=== PATIENT | male | born 1950 | race Caucasian/White ===

== ENCOUNTER 2019-05-27 20:28 | Emergency (ER) | payer MEDICARE, MEDICAID ==
[~2019-05-27] VITALS: Ht 170.2 cm; Wt 88.7 kg
[2019-05-27] MEDS ORDERED: LISI-661 PO (20:47)
[2019-05-27] MEDS ORDERED: VENL-53 PO (20:47)
[2019-05-27] MEDS ORDERED: FURO40 PO (20:47)
[2019-05-27] MEDS ORDERED: METH500T7 PO (20:47)
[2019-05-27] MEDS ORDERED: FLUT16H NASAL (20:47)
[2019-05-27] MEDS ORDERED: ACET500C4 PO (20:47)
[2019-05-27] MEDS ORDERED: PIOG15TA6 PO (20:47)
[2019-05-27] MEDS ORDERED: FURO20 PO (20:47)
[2019-05-27] MEDS ORDERED: LORA10TA7 PO (20:47)
[2019-05-27] MEDS ORDERED: LOSA50TA64 PO (20:47)
[2019-05-27] MEDS ORDERED: CLOP75TA3 PO (20:47)
[2019-05-27] MEDS ORDERED: ATOR20TA86 PO (20:47)
[2019-05-27 21:04] LABS: BASOPHILS % (AUTO) 0.5 % (0.0-2.0); EOSINOPHILS % (AUTO) 0.1 % (1.0-6.0); HEMATOCRIT 39.4 % (41-53); HEMOGLOBIN 13.4 g/dL (13.5-17.5); LYMPHOCYTES # (AUTO) 1.2 K/uL (1.0-4.8); LYMPHOCYTES % (AUTO) 16.6 % (22.0-44.0); MEAN CORPUSCULAR HEMOGLOBIN 28.7 pg (26.0-34.0); MEAN CORPUSCULAR HGB CONC 34.1 G/dL (31.0-37.0); MEAN CORPUSCULAR VOLUME 84 fL (80-100); MONOCYTES # (AUTO) 0.4 K/uL (0.1-1.0); MONOCYTES % (AUTO) 5.3 % (2.0-9.0); NEUTROPHILS # (AUTO) 5.4 K/uL (1.8-7.7); NEUTROPHILS % (AUTO) 77.5 % (40.0-70.0); PLATELET COUNT (AUTO) 191 K/uL (150-450); RED BLOOD CELL COUNT(AUTO) 4.68 MIL/uL (4.50-5.90)
[2019-05-27] MEDS ORDERED: NiCARDipine HCL 25 MG in DEXTROSE 5%-WATER 240 ML IV PRN (21:15)
[2019-05-27 21:16] LABS: ANION GAP 10 mmol/L (8-16); CALCIUM, TOTAL 9.6 mg/dL (8.8-10.5); CARBON DIOXIDE 29 mmol/L (22-29); CHLORIDE 100 mmol/L (98-107); CREATININE 0.98 mg/dL (0.60-1.30); GLOMERULAR FILTR. RATE CALC > 60 mL/min (>60); GLUCOSE,RANDOM 392 mg/dL (70-110); POTASSIUM 4.2 mmol/L (3.5-5.1); SODIUM SERUM 139 mmol/L (136-145); UREA NITROGEN, BLOOD 18 mg/dL (7-18)
[2019-05-27 21:17] LABS: PROTHROMBIN TIME 10.1 SEC (9.4-11.6)
[2019-05-27 21:22] LABS: ALANINE AMINOTRANSFERASE 30 U/L (12-78); ALBUMIN 3.8 g/dL (3.4-5.0); ALKALINE PHOSPHATASE 114 U/L (46-116); ASPARTATE AMINOTRANSFERASE 24 U/L (15-37); TOTAL PROTEIN, SERUM 7.8 g/dL (6.4-8.2)
[2019-05-27 21:40] LABS: APPEARANCE,URINE CLEAR (CLEAR); BILIRUBIN,URINE NEGATIVE (NEGATIVE); GLUCOSE, URINE (UA) >=1000 mg/dL (NEGATIVE); KETONES,URINE 15 mg/dL (NEGATIVE); LEUKOCYTE ESTERASE ,URINE NEGATIVE (NEGATIVE); NITRATE,URINE NEGATIVE (NEGATIVE); OCCULT BLOOD,URINE MODERATE (NEGATIVE); PH,URINE 6.5 (5.0-8.0); PROTEIN,URINE SEE CONFIRM (NEGATIVE)
[2019-05-27] MEDS ORDERED: ALTEPLASE IV ONE ×2 (21:45)
[2019-05-27] MEDS ORDERED: ALTEPLASE PER STROKE PROTOCOL CLINICAL ONE (21:45)
[2019-05-27] MEDS ORDERED: WATER FOR INJECTION STERILE IV ONE ×2 (21:45)
[2019-05-27 21:46] LABS: AMPHET/METH SCREEN,URINE POSITIVE (NEGATIVE); BARBITURATE SCREEN, URINE NEGATIVE (NEGATIVE); BENZODIAZEPINES SCREEN,URINE NEGATIVE (NEGATIVE); CANNABINOID SCREEN,URINE NEGATIVE (NEGATIVE); COCAINE SCREEN,URINE NEGATIVE (NEGATIVE); METHADONE SCREEN, URINE NEGATIVE (NEGATIVE); OPIATE SCREEN,URINE NEGATIVE (NEGATIVE); SULFOSALICYLIC ACID,URINE 4+ (Negative)
[2019-05-27 21:47] LABS: PHENCYCLIDINE SCREEN,URINE NEGATIVE (NEGATIVE)
[2019-05-27 21:48] LABS: BACTERIA,URINE None Seen /HPF (None Seen); SQUAMOUS EPITHELIAL CELL,UR Rare /LPF (None Seen); WBC,URINE None Seen /HPF (0-5)
[2019-05-27] MEDS ORDERED: INSULIN LISPRO 100 UNITS/ML SQ ONE (23:30)
[2019-05-27 23:40] LABS: GLUCOSE,POINT OF CARE 410 MG/DL (70-110)
[2019-05-27 23:50] VITALS: BP 129/81
[2019-05-28 00:17] LABS: GLUCOSE,POINT OF CARE 383 MG/DL (70-110)
== END 2019-05-28 | disposition short-term general hospital (02) ==
LOC: EMS 20:41
DX: I63.9 Cerebral infarction, unspecified (principal)
CPT/HCPCS: 36415; 37195; 70450; 70496; 71045; 80053; 80307; 81001; 82271; 82962; 84484; 85025; 85610; 85730; 86850; 86900; 86901; 93005; 96365; 96366; 96372; 99291; J2997; J3490; J7060; J1815